=== PATIENT | male | born 1960 | race Asian ===

== ENCOUNTER 2019-12-21 12:30 | Outpatient (REF) | payer OTHER, SELFPAY ==
[2019-12-21 14:11] LABS: Baso%MD 0.3 %; Eos%MD 0.7 %; Hematocrit 39.6 % (42-52); Hemoglobin 12.4 g/dl (14.0-18.0); IG%MD 0.3 %; Lymph%MD 25.1 %; Mean Corpuscular HGB Conc 31.3 g/dl (31.0-36.0); Mean Corpuscular Hemoglobin 26.4 pg (27.0-33.0); Mean Corpuscular Volume 84.3 fL (80-98); Mean Platelet Volume 10.6 fL (9.4-12.4); Neut%MD 65.6 %; Platelet Count 276 X10*3/uL (160-400); Red Cell Distribution Width 14.6 % (11.0-16.0); White Blood Count 8.9 X10*3/uL (4.8-10.8)
[2019-12-21 14:43] LABS: Creatinine Urine 159.71 mg/dL; Microalbum/Creatinine Ratio Ur 32.5 ug/mg cr
[2019-12-21 14:46] LABS: Alanine Aminotransferase 22 U/L (0-40); Albumin Level 4.3 g/dL (3.5-5.0); Alkaline Phosphatase 69 U/L (39-117); Anion Gap 15 (12-20); Aspartate Amino Transferase 19 U/L (5-37); Bilirubin Total 0.6 mg/dL (0.0-1.0); Blood Urea Nitrogen 15 mg/dL (9-16); Calcium 9.2 mg/dL (8.4-10.2); Carbon Dioxide 22 mmol/L (22-29); Chloride 105 mmol/L (96-108); Estimated Glomerular Filt Rate > 60; Glucose Random 164 mg/dL (60-115); Potassium 4.5 mmol/l (3.3-5.1); Sodium 137 mmol/L (135-145); Total Protein 7.1 g/dL (6.5-8.0)
[2019-12-21 15:03] LABS: Band Neutrophils Percent 4 % (3-5); Basophils Abs Manual 0.1 X10*3/uL (0.0-0.3); Basophils Percent Manual 1 % (0-1); Eosinophils Absolute Manual 0.1 X10*3/UL (0.0-0.8); Eosinophils Percent Manual 1 % (0-4); Lymphocytes Absolute Manual 1.2 X10*3/uL (0.6-4.8); Lymphocytes Percent Manual 14 % (20-40); Monocytes Absolute Manual 0.7 X10*3/uL (0.0-1.2); Monocytes Percent Manual 8 % (2-11); Neutrophils Absolute Manual 6.8 X10*3/uL (2.2-7.9); Neutrophils Percent Manual 72 % (45-73); Platelet Estimate NORMAL (NORMAL); Platelet Morphology Comment NORMAL; RBC Morphology NORMAL
[2019-12-21 15:08] LABS: Estimated Average Glucose 146 mg/dL; Hemoglobin A1c % 6.7 %
== END 2019-12-21 12:31 | disposition home or self-care (01) ==
LOC: HO.HMGCLDS 12:30
PROVIDERS: PCP Internal Medicine; Visit Provider Internal Medicine
DX: E11.9 Type 2 diabetes mellitus without complications (principal); D64.9 Anemia, unspecified; R10.13 Epigastric pain; I10 Essential (primary) hypertension; N40.1 Benign prostatic hyperplasia with lower urinary tract symptoms
CPT/HCPCS: 36415; 80053; 82043; 83036; 85007; 85027

== ENCOUNTER 2020-02-12 09:00 | Outpatient (RCR) | payer OTHER, SELFPAY ==
--- NOTE | 2020-01-08 13:35 | MHC.PT.EP ---
[facility] [place] Office [place] Office [place] Office [address] Samantha Clifton [address] [phone] F: [phone] F: [phone] F: [phone] F: [phone] Physical Therapy Plan of Care Date of Evaluation: 01/08/20 Date of Surgery: n/a Diagnosis: R shoulder pain Assessment: Patient is a 59 year old R handed male who presents with s/s consistent with R shoulder pain. 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 Patient past medical history includes DM. Denies any history of shoulder pathology. Current impairments include pain, ROM, posture, strength, activity tolerance and functional mobility. Functional limitations include decreased ability to push, pull, reach behind back, dress, lift, carry, sleep, and perform weight bearing activities.. Patient is motivated with good rehab potential. Skilled PT will address impairments and functional limitations in order to achieve goals. Frequency and Duration: The patient will be seen 2x/week for 6 weeks Short Term Goals: I with HEP - 2 weeks Pain free [place] IR to T12, ER to T1. - 3 weeks ER strength 4/5 - 3 weeks Pain free abd to 140 or better - 3 weeks Senior Care Goals: Full pain free AROM - 5 weeks SPADI 20/130 or better - 5 weeks Pain free return to all ADLs/sleep - 6 weeks Treatment Plan: Modalities to reduce pain, spasms and effusion. Manual therapy to restore motion and function. Therapeutic exercise to improve strength and flexibility. Neuromuscular re-education for posture and balance. Therapeutic activities to return to functional activities of daily living. Please sign and return to therapist. Thank you for your referral.
--- NOTE | 2020-03-21 07:55 | MHC.PT.DC ---
[facility] [place] Office [place] Office [place] Office [address] Samantha Clifton [address] [phone] F: [phone] F: [phone] F: [phone] F: [phone] Physical Therapy Discharge Report Diagnosis: R shoulder pain Date of Surgery: n/a Date of Evaluation: 01/08/20 Date of Discharge: Treatments to Date: 11 Cancellations to Date: No Shows to Date: Discharge Status: Discharge Summary: Pt had to leave the state unexpectedly despite making good progress in PT. He has HEP. Electronically signed by: Abhijit Ziegler, PT Please sign and return to therapist. Thank you for your referral.
== END 2020-03-21 07:55 | disposition home or self-care (01) ==
LOC: HO.PTCHIC 09:00
PROVIDERS: PCP Internal Medicine; Visit Provider Internal Medicine
DX: M25.511 Pain in right shoulder (principal)
CPT/HCPCS: 97110; 97140; 97161; 97530

== ENCOUNTER 2020-05-01 10:54 | Outpatient (REF) | payer OTHER, SELFPAY | END 2020-05-01 10:55 | disposition home or self-care (01) | LOC: HO.HMGCLDS 10:54 | PROVIDERS: PCP Internal Medicine; Visit Provider Internal Medicine | DX: Z20.822 Contact with and (suspected) exposure to COVID-19 (principal) | CPT/HCPCS: 36415; C9803; U0003; U0005 ==

== ENCOUNTER 2020-06-28 08:02 | Outpatient (REF) | payer OTHER, SELFPAY ==
[2020-06-28 11:32] LABS: Hematocrit 41.1 % (42-52); Hemoglobin 12.8 g/dl (14.0-18.0)
[2020-06-28 11:44] LABS: Alanine Aminotransferase 25 U/L (0-40); Albumin Level 4.2 g/dL (3.5-5.0); Alkaline Phosphatase 69 U/L (39-117); Anion Gap 16 (12-20); Aspartate Amino Transferase 20 U/L (5-37); Bilirubin Total 0.6 mg/dL (0.0-1.0); Blood Urea Nitrogen 15 mg/dL (9-16); Calcium 9.4 mg/dL (8.4-10.2); Carbon Dioxide 26 mmol/L (22-29); Chloride 102 mmol/L (96-108); Estimated Glomerular Filt Rate > 60; Glucose Random 109 mg/dL (60-115); Potassium 4.4 mmol/L (3.3-5.1); Sodium 140 mmol/L (135-145); Total Protein 7.1 g/dL (6.5-8.0)
[2020-06-28 11:49] LABS: Creatinine Urine 126.29 mg/dL; Microalbum/Creatinine Ratio Ur 78.3 ug/mg cr
[2020-06-28 12:10] LABS: Estimated Average Glucose 148 mg/dL; Hemoglobin A1c % 6.8 %
[2020-06-29 08:21] LABS: LDL Cholesterol Direct 89 mg/dL (<100)
== END 2020-06-28 08:03 | disposition home or self-care (01) ==
LOC: HO.HMGCLDS 08:02
PROVIDERS: PCP Internal Medicine; Visit Provider Internal Medicine
DX: D50.9 Iron deficiency anemia, unspecified (principal); E13.9 Other specified diabetes mellitus without complications; E66.9 Obesity, unspecified; I10 Essential (primary) hypertension; K21.9 Gastro-esophageal reflux disease without esophagitis
CPT/HCPCS: 36415; 80053; 82043; 83036; 83721; 85014; 85018

== ENCOUNTER → 2020-11-29 08:59 | Outpatient (BNVA) | payer OTHER, SELFPAY | PROVIDERS: PCP Internal Medicine; Visit Provider Urology ==

== ENCOUNTER 2020-12-13 12:38 | Outpatient (REF) | payer OTHER, SELFPAY ==
[2020-12-13 14:28] LABS: Alanine Aminotransferase 21 U/L (0-40); Albumin Level 4.2 g/dL (3.5-5.0); Alkaline Phosphatase 61 U/L (39-117); Anion Gap 13 (12-20); Aspartate Amino Transferase 22 U/L (5-37); Bilirubin Total 0.5 mg/dL (0.0-1.0); Blood Urea Nitrogen 14 mg/dL (9-16); Calcium 9.7 mg/dL (8.4-10.2); Carbon Dioxide 22 mmol/L (22-29); Chloride 107 mmol/L (96-108); Estimated Glomerular Filt Rate > 60; Glucose Random 92 mg/dL (60-115); Potassium 4.1 mmol/L (3.3-5.1); Sodium 138 mmol/L (135-145); Total Protein 6.9 g/dL (6.5-8.0)
[2020-12-13 14:38] LABS: Creatinine Urine 94.49 mg/dL; Microalbum/Creatinine Ratio Ur 14.8 ug/mg cr
[2020-12-13 14:49] LABS: Estimated Average Glucose 143 mg/dL; Hemoglobin A1c % 6.6 %
== END 2020-12-13 12:39 | disposition home or self-care (01) ==
LOC: HO.HMGCLDS 12:38
PROVIDERS: PCP Internal Medicine; Visit Provider Internal Medicine
DX: Z00.01 Encounter for general adult medical examination with abnormal findings (principal); E13.9 Other specified diabetes mellitus without complications; I10 Essential (primary) hypertension; R80.9 Proteinuria, unspecified
CPT/HCPCS: 36415; 80053; 82043; 83036